=== PATIENT | female | born 1935 | race Caucasian/White ===

== ENCOUNTER 2017-04-11 20:56 | Emergency (ER) | payer MEDICARE, BC ==
[2017-04-11 21:09] VITALS: BP 140/109
--- NOTE | 2017-04-11 22:03 | EDM.PDOC ---
ED HPI GENERAL MEDICAL PROBLEM - General Chief Complaint: Lower Extremity Injury/Pain Stated Complaint: FELL DOWN STEPS INJURING LEFT ANKLE Time Seen by Provider: 04/11/17 21:10 Source of Information: Reports: Patient History Limitations: Reports: No Limitations - History of Present Illness INITIAL COMMENTS - FREE TEXT/NARRATIVE: The patient said she had a light bulb out down her stairs and she was going down stairs to take care of it and she slipped on the bottom step and hurt her right ankle. She did not hit her head or hurt her neck. She could not get up the stairs because of the pain. Her neighbor came to check on her and she brought her in. She has no other complaint just left ankle pain. Onset: Sudden Duration: Hour(s): (This morning) Location: Reports: Lower Extremity, Left (ankle) Quality: Reports: Sharp Severity: Moderate Improves with: Reports: None Worsens with: Reports: Movement (and walking on it) Associated Symptoms: Reports: No Other Symptoms Left Ankle Pain Score (Numeric/FACES): 6 - Related Data Allergies Allergy/AdvReac Type Severity Reaction Status Date / Time Penicillins Allergy Redness Verified 04/11/17 21:09 streptomycin Allergy Redness Verified 04/11/17 21:09 Home Meds: Home Meds Hydrochlorothiazide 25 mg PO DAILY 04/11/17 [History] Lisinopril 10 mg PO DAILY 04/11/17 [History] Metoprolol Tartrate 25 mg PO BID 04/11/17 [History] amLODIPine [Norvasc] 5 mg PO DAILY 04/11/17 [History] atorvaSTATin [Lipitor] 40 mg PO DAILY 04/11/17 [History] Past Medical History HEENT History: Reports: Cataract Cardiovascular History: Reports: Aneurysm, High Cholesterol, Hypertension Respiratory History: Reports: SOB Gastrointestinal History: Reports: Chronic Diarrhea Genitourinary History: Reports: Other (See Below) 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: - Past Surgical History HEENT Surgical History: Reports: Cataract Surgery Cardiovascular Surgical History: Reports: AAA repair, Valve Replacement GI Surgical History: Reports: Colonoscopy, Other (See Below) Other GI Surgeries/Procedures: COLON RESECTION Social & Family History - Family History Family Medical History: Noncontributory - Tobacco Use Smoking Status *Q: Current Every Day Smoker Years of Tobacco use: 65 Packs/Tins Daily: 1 - Recreational Drug Use Recreational Drug Use: No Review of Systems - Review of Systems Review Of Systems: See Below Constitutional: Reports: No Symptoms Eyes: Reports: No Symptoms Ears: Reports: No Symptoms Nose: Reports: No Symptoms Mouth/Throat: Reports: No Symptoms Respiratory: Reports: No Symptoms Cardiovascular: Reports: No Symptoms GI/Abdominal: Reports: No Symptoms Genitourinary: Reports: No Symptoms Musculoskeletal: Reports: Other (Left ankle pain) ED EXAM, GENERAL - Physical Exam Exam: See Below Exam Limited By: No Limitations General Appearance: Alert, No Apparent Distress Ears: Normal External Exam Nose: Normal Inspection Head: Atraumatic, Normocephalic Neck: Normal Inspection Respiratory/Chest: No Respiratory Distress, Lungs Clear, Normal Breath Sounds Cardiovascular: Regular Rate, Rhythm, No Edema, No Murmur GI/Abdominal: Soft, Non-Tender, No Organomegaly, No Mass Extremities: Other (Left medial ankle tenderness. Good sensation and pulses distally.) Course - Vital Signs Last Recorded V/S: Last Vital Signs Temp 96.9 F 04/11/17 21:04 Pulse 76 04/11/17 21:04 Resp 16 04/11/17 21:04 BP 140/109 H 04/11/17 21:04 Pulse Ox 93 L 04/11/17 21:04 - Orders/Labs/Meds Orders: Active Orders 24 hr Category Date Time Status Ankle Min 3V Lt [CR] Stat Exams 04/11/17 21:31 Taken Durable Medical Equipment for Discharge [DME for Oth 04/11/17 22:07 Ordered Discharge] [COMM] Stat - Re-Assessments/Exams Free Text/Narrative Re-Assessment/Exam: 04/11/17 22:09 The x-ray of her ankle shows a distal tibia fracture. Her neighbor was asking if she could be admitted. I told her I was not sure she would meet criteria. The patient did not want to be admitted. I will put a walking boot on her and she has crutches and a walker at home that she bought recently. 04/11/17 22:40 I talked top her again and she did not want to stay. Departure - Departure Time of Disposition: 22:10 Disposition: Home, Self-Care 01 Condition: Good Clinical Impression: Fall Qualifiers: Encounter type: initial encounter Qualified Code(s): W19.XXXA - Unspecified fall, initial encounter Fracture of distal end of tibia Qualifiers: Encounter type: initial encounter Fracture type: closed Fracture morphology: other fracture Laterality: left Qualified Code(s): S82.392A - Other fracture of lower end of left tibia, initial encounter for closed fracture - Discharge Information Referrals: Conner Park MD [Physician] - 1 Week Forms: ED Department Discharge Additional Instructions: Ice your ankle for 15 minutes every other hour while awake for 2 days. Elevate your ankle above your heart as much as you can for 2 days. Take tylenol or motrin for pain. Follow up with Dr Park in 1 week. - My Orders Last 24 Hours: My Active Orders 04/11/17 21:31 Ankle Min 3V Lt [CR] Stat 04/11/17 22:07 Durable Medical Equipment for Discharge [DME for Discharge] [COMM] Stat - Assessment/Plan Last 24 Hours: My Active Orders 04/11/17 21:31 Ankle Min 3V Lt [CR] Stat 04/11/17 22:07 Durable Medical Equipment for Discharge [DME for Discharge] [COMM] Stat
--- NOTE | 2017-04-12 09:50 | CR ---
Left ankle: Four portable views of the left ankle were obtained. Comparison: No previous study. Soft tissue swelling is identified. Minimally displaced fracture seen within the medial malleolus. Mild deformity of the posterior malleolus is seen likely representing old injury. Bony structures are osteoporotic. No additional fracture is appreciated. Impression: 1. Slightly displaced medial malleolus fracture. 2. Soft tissue swelling and other incidental findings. Diagnostic code #3
== END 2017-04-11 23:16 | disposition home or self-care (01) ==
LOC: JD.ED 20:56
DX: S82.392A Other fracture of lower end of left tibia, initial encounter for closed fracture (principal); E78.00 Pure hypercholesterolemia, unspecified; I10 Essential (primary) hypertension; F17.210 Nicotine dependence, cigarettes, uncomplicated; Z88.0 Allergy status to penicillin; Z88.1 Allergy status to other antibiotic agents; Z79.899 Other long term (current) drug therapy; Z98.49 Cataract extraction status, unspecified eye; W10.9XXA Fall (on) (from) unspecified stairs and steps, initial encounter
CPT/HCPCS: 73610-26-LT; 73610-LT; 99283

== ENCOUNTER 2019-02-09 10:06 | Emergency (ER) | payer BC, MEDICARE ==
[2019-02-09] MEDS ORDERED: Sodium Chloride 0.9% 10 ML Syringe FLUSH PRN (10:13)
[2019-02-09 10:20] VITALS: BP 142/97
--- NOTE | 2019-02-09 10:49 | CT ---
Head CT Technique: Multiple axial sections through the brain were obtained. Intravenous contrast was not utilized. Comparison: No prior intracranial imaging is available. Findings: Ventricles along with basal cisterns and sulci over the convexities are moderately prominent. Diminished density is noted within the periventricular and subcortical white matter compatible with fairly prominent small vessel ischemic demyelination change. No other abnormal parenchymal densities are seen. No evidence of intracranial hemorrhage. No midline shift or mass effect is seen. Bone window settings were reviewed which show mucosal thickening within the right mastoid sinus. Other visualized sinuses are clear. Incidental atherosclerotic calcification is seen within the carotid siphon. No acute calvarial abnormality is seen. Impression: 1. Mucosal thickening within the right mastoid sinus. This is likely chronic if patient has no acute signs of mastoiditis. 2. Senescent change as described above. 3. No acute intracranial abnormality is identified. Diagnostic code #3
--- NOTE | 2019-02-09 11:39 | EDM.PDOC ---
ED HPI GENERAL MEDICAL PROBLEM - General Chief Complaint: Neuro Symptoms/Deficits Stated Complaint: STROKE SYMPTOMS Time Seen by Provider: 02/09/19 10:13 Source of Information: Reports: Patient, Family History Limitations: Reports: No Limitations - History of Present Illness INITIAL COMMENTS - FREE TEXT/NARRATIVE: The patient presents with left sided facial weakness. She woke up with this. She went to bed around 9pm last night and she was feeling fine. She has no headache, fever, chills, cough, chest pain or shortness of breath. She has no abdominal pain, nausea or vomiting. She has no numbness or weakness in her arms or legs. She has never had a stroke before. Onset: Gradual Duration: Hour(s): Location: Reports: Head Severity: Moderate Improves with: Reports: None Worsens with: Reports: None Associated Symptoms: Reports: No Other Symptoms - Related Data Allergies Allergy/AdvReac Type Severity Reaction Status Date / Time Penicillins Allergy Redness Verified 02/09/19 10:20 streptomycin Allergy Redness Verified 02/09/19 10:20 Home Meds: Home Meds Hydrochlorothiazide 25 mg PO DAILY 04/11/17 [History] Lisinopril 10 mg PO DAILY 04/11/17 [History] amLODIPine [Norvasc] 5 mg PO DAILY 04/11/17 [History] Dextran 70/Hypromellose [Artificial Tears] 1 ml OP QID #1 bottle 02/09/19 [Rx] predniSONE [Prednisone] 60 mg PO DAILY #18 tablet 02/09/19 [Rx] valACYclovir [Valtrex] 1,000 mg PO TID #21 tab 02/09/19 [Rx] Past Medical History HEENT History: Reports: Cataract Cardiovascular History: Reports: Aneurysm, High Cholesterol, Hypertension Respiratory History: Reports: SOB Gastrointestinal History: Reports: Chronic Diarrhea Genitourinary History: Reports: Other (See Below) 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: - Past Surgical History HEENT Surgical History: Reports: Cataract Surgery Cardiovascular Surgical History: Reports: AAA Repair, Valve Replacement GI Surgical History: Reports: Colonoscopy Female Surgical History: Reports: None Social & Family History - Family History Family Medical History: Noncontributory - Tobacco Use Smoking Status *Q: Current Status Unknown - Caffeine Use Caffeine Use: Reports: Coffee ED ROS GENERAL - Review of Systems Review Of Systems: See Below Constitutional: Reports: No Symptoms HEENT: Reports: No Symptoms Respiratory: Reports: No Symptoms Cardiovascular: Reports: No Symptoms Endocrine: Reports: No Symptoms GI/Abdominal: Reports: No Symptoms : Reports: No Symptoms Musculoskeletal: Reports: No Symptoms Neurological: Reports: Other (Left sided facial droop) ED EXAM, NEURO - Physical Exam Exam: See Below Exam Limited By: No Limitations General Appearance: Alert, No Apparent Distress Eye Exam: Bilateral Eye: EOMI Ears: Normal External Exam Nose: Normal Inspection Head Exam: Atraumatic, Normocephalic Neck: Normal Inspection, Supple, Non-Tender Respiratory/Chest: No Respiratory Distress, Lungs Clear, Normal Breath Sounds Cardiovascular: Regular Rate, Rhythm, No Edema, No Murmur GI/Abdominal: Soft, Non-Tender, No Organomegaly, No Mass Neurological: Other (Left sided facial droop. Equal arm and leg strength.) EKG INTERPRETATION EKG Date: 02/09/19 Time: 10:31 Rhythm: NSR Rate (Beats/Min): 65 [employer]: Normal P-Wave: Present QRS: Normal ST-T: Normal QT: Normal Course - Vital Signs Last Recorded V/S: Last Vital Signs Temp 97.7 F 02/09/19 10:16 Pulse 79 02/09/19 10:16 Resp 18 02/09/19 10:16 BP 142/97 H 02/09/19 10:16 Pulse Ox 96 02/09/19 10:16 - Orders/Labs/Meds Orders: Active Orders 24 hr Category Date Time Status Cardiac Monitoring [RC] . DIRECTED Care 02/09/19 10:13 Active EKG Documentation Completion [RC] STAT Care 02/09/19 10:15 Active Peripheral IV Care [RC] . DIRECTED Care 02/09/19 10:15 Active Sodium Chloride 0.9% [Saline Flush] Med 02/09/19 10:13 Active 10 ml FLUSH ASDIRECTED PRN Peripheral IV Insertion Adult [OM.PC] Stat Oth 02/09/19 10:13 Ordered Medication Orders Sodium Chloride (Saline Flush) 10 ml FLUSH ASDIRECTED PRN PRN Reason: Keep Vein Open Last Admin: 02/09/19 10:43 Dose: 10 ml Labs: Laboratory Tests 02/09/19 02/09/19 02/09/19 Range/Units 10:13 10:20 10:20 WBC 5.34 (3.98-10.04) K/mm3 RBC 4.87 (3.98-5.22) M/mm3 Hgb 11.6 (11.2-15.7) gm/L Hct 38.1 (34.1-44.9) % MCV 78.2 L (79.4-94.8) fl MCH 23.8 L (25.6-32.2) pg MCHC 30.4 L (32.2-35.5) g/dl RDW Std Deviation 48.8 H (36.4-46.3) fL Plt Count 158 L (182-369) K/mm3 MPV 9.7 (9.4-12.3) fl Neut % (Auto) 61.9 (34.0-71.1) % Lymph % (Auto) 21.7 (19.3-51.7) % [place] % (Auto) 9.9 (4.7-12.5) % Eos % (Auto) 5.2 (0.7-5.8) Baso % (Auto) 1.1 (0.1-1.2) % Neut # (Auto) 3.30 (1.56-6.13) K/mm3 Lymph # (Auto) 1.16 L (1.18-3.74) K/mm3 [place] # (Auto) 0.53 H (0.24-0.36) K/mm3 Eos # (Auto) 0.28 (0.04-0.36) K/mm3 Baso # (Auto) 0.06 (0.01-0.08) K/mm3 Sodium 137 (136-145) mEq/L Potassium 4.2 (3.5-5.1) mEq/L Chloride 103 (98-107) mEq/L Carbon Dioxide 27 (21-32) mEq/L Anion Gap 11.2 (5-15) BUN 22 H (7-18) mg/dL Creatinine 1.3 H (0.55-1.02) mg/dL Est Cr Clr Drug Dosing 25.93 mL/min Estimated GFR (MDRD) 39 (>60) mL/min BUN/Creatinine Ratio 16.9 (14-18) Glucose 94 (83-115) mg/dL POC Glucose 98 (83-110) mg/dL Calcium 8.9 (8.5-10.1) mg/dL Total Bilirubin 0.4 (0.2-1.0) mg/dL AST 22 (15-37) U/L ALT 15 (14-59) U/L Alkaline Phosphatase 76 (46-116) U/L Troponin I 0.166 H* (0.00-0.056) ng/mL Total Protein 7.5 (6.4-8.2) g/dl Albumin 2.9 L (3.4-5.0) g/dl Globulin 4.6 gm/dL Albumin/Globulin Ratio 0.6 L (1-2) 02/09/19 Range/Units 12:03 WBC (3.98-10.04) K/mm3 RBC (3.98-5.22) M/mm3 Hgb (11.2-15.7) gm/L Hct (34.1-44.9) % MCV (79.4-94.8) fl MCH (25.6-32.2) pg MCHC (32.2-35.5) g/dl RDW Std Deviation (36.4-46.3) fL Plt Count (182-369) K/mm3 MPV (9.4-12.3) fl Neut % (Auto) (34.0-71.1) % Lymph % (Auto) (19.3-51.7) % [place] % (Auto) (4.7-12.5) % Eos % (Auto) (0.7-5.8) Baso % (Auto) (0.1-1.2) % Neut # (Auto) (1.56-6.13) K/mm3 Lymph # (Auto) (1.18-3.74) K/mm3 [place] # (Auto) (0.24-0.36) K/mm3 Eos # (Auto) (0.04-0.36) K/mm3 Baso # (Auto) (0.01-0.08) K/mm3 Sodium (136-145) mEq/L Potassium (3.5-5.1) mEq/L Chloride (98-107) mEq/L Carbon Dioxide (21-32) mEq/L Anion Gap (5-15) BUN (7-18) mg/dL Creatinine (0.55-1.02) mg/dL Est Cr Clr Drug Dosing mL/min Estimated GFR (MDRD) (>60) mL/min BUN/Creatinine Ratio (14-18) Glucose (83-115) mg/dL POC Glucose (83-110) mg/dL Calcium (8.5-10.1) mg/dL Total Bilirubin (0.2-1.0) mg/dL AST (15-37) U/L ALT (14-59) U/L Alkaline Phosphatase (46-116) U/L Troponin I 0.155 H* (0.00-0.056) ng/mL Total Protein (6.4-8.2) g/dl Albumin (3.4-5.0) g/dl Globulin gm/dL Albumin/Globulin Ratio (1-2) Meds: Medications Generic Name Dose Route Start Last Admin Trade Name Freq PRN Reason Stop Dose Admin Sodium Chloride 10 ml 02/09/19 10:13 02/09/19 10:43 Saline Flush FLUSH 10 ml ASDIRECTED PRN Administration Keep Vein Open Discontinued Medications Generic Name Dose Route Start Last Admin Trade Name Freq PRN Reason Stop Dose Admin Prednisone 60 mg 02/09/19 11:52 02/09/19 12:03 Prednisone PO 02/09/19 11:53 60 mg ONETIME ONE Administration - Re-Assessments/Exams Free Text/Narrative Re-Assessment/Exam: 02/09/19 11:42 I ordered an IV saline lock, EKG, CT of her head and labs. Her EKG shows a NSR with no acute changes. Her CBC looks good. Her creatinine is slightly elevated at 1.3. Her troponin is elevated at 0.166. Her CT shows mucosal thickening within the right mastoid sinus. This is likely chronic if patient has no acute signs of mastoiditis. Senescent change. No acute intracranial abnormality is identified. 02/09/19 12:27 She has trouble with her forehead on the left moving. 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 I will give her some prednisone 60mg here and I am going to repeat her troponin. I feel that is normal for her. 02/09/19 12:39 Her repeat troponin is still elevated but better at 0.155. I feel she has a trop leak but no [place]. I will discharge her home on the prednisone and antiviral. Departure - Departure Time of Disposition: 12:40 Disposition: Home, Self-Care 01 Condition: Good Clinical Impression: Guy palsy - Discharge Information *PRESCRIPTION DRUG MONITORING PROGRAM REVIEWED*: Not Applicable *COPY OF PRESCRIPTION DRUG MONITORING REPORT IN PATIENT LUIS FELIPE: Not Applicable Prescriptions: predniSONE [Prednisone] 60 mg PO DAILY #18 tablet valACYclovir [Valtrex] 1,000 mg PO TID #21 tab Referrals: Camille Jones MD [Primary Care Provider] - Forms: ED Department Discharge Additional Instructions: Take the prednisone 60mg daily for 6 days starting tomorrow. Take the valacyclovir 3 times per day for 7 days. Use an eye patch to protect your eye at night. Use the artificial tears 2 drips 4 times per day as needed for dry eye. Please return if you are worse. - My Orders Last 24 Hours: My Active Orders 02/09/19 10:13 Cardiac Monitoring [RC] . DIRECTED Sodium Chloride 0.9% [Saline Flush] 10 ml FLUSH ASDIRECTED PRN Peripheral IV Insertion Adult [OM.PC] Stat 02/09/19 10:15 EKG Documentation Completion [RC] STAT Peripheral IV Care [RC] . DIRECTED - Assessment/Plan Last 24 Hours: My Active Orders 02/09/19 10:13 Cardiac Monitoring [RC] . DIRECTED Sodium Chloride 0.9% [Saline Flush] 10 ml FLUSH ASDIRECTED PRN Peripheral IV Insertion Adult [OM.PC] Stat 02/09/19 10:15 EKG Documentation Completion [RC] STAT Peripheral IV Care [RC] . DIRECTED
[2019-02-09] MEDS ORDERED: predniSONE 20 MG Tab PO ONE (11:52)
== END 2019-02-09 13:00 | disposition home or self-care (01) ==
LOC: JD.ED 10:06
DX: G51.0 Bell's palsy (principal); I10 Essential (primary) hypertension; E78.00 Pure hypercholesterolemia, unspecified; Z79.899 Other long term (current) drug therapy; Z88.0 Allergy status to penicillin; Z88.1 Allergy status to other antibiotic agents
CPT/HCPCS: 36415; 70450; 80053; 82962; 84484; 85025; 93005; 99284; A9270; 93010

== ENCOUNTER 2019-12-06 11:06 | Emergency (ER) | payer MEDICARE ==
[2019-12-06] MEDS ORDERED: Sodium Chloride 0.9% 10 ML Syringe FLUSH PRN ×2 (11:22→12:23)
[2019-12-06 11:50] VITALS: BP 105/68
[2019-12-06] MEDS ORDERED: Lactated Ringers 1,000 ML IV ONE (12:23)
--- NOTE | 2019-12-06 12:45 | EDM.PDOC ---
ED HPI GENERAL MEDICAL PROBLEM - General Source of Information: Reports: Other (Neighbor/Truck Engine Assembler that brought her in ) History Limitations: Reports: Altered Mental Status (Does not have any idea as to why she is in her) <Darius Goodrich - Last Filed: 12/06/19 12:24> <Yifan Carnes - Last Filed: 12/08/19 17:37> - General Chief Complaint: Neurological Problem Stated Complaint: CONFUSED SENT BY DR BERRY Time Seen by Provider: 12/06/19 11:15 - History of Present Illness INITIAL COMMENTS - FREE TEXT/NARRATIVE: Shahla is an 84 y/o female who was brought in today by her neighbor/blooming mill supervisor who was informed by the patient's son that Dr. Berry ([facility]) said Shahla should come into the ED for an evaluation. The neighbor/blooming mill supervisor was the historian for this visit. Her neighbor states that since around [place] time Shahla has started to mentally decline and has started to lose her appetite, weight, and has felt more and more dehydrated. This last month in particular has been worse as Shahla does not have much idea of what is exactly going on, she is nauseous and vomiting more frequently, her blood pressure has been decreasing steadily, and she does not want to eat and only wants to drink water because she is so thirsty. In addition, the blooming mill supervisor reports that (on ) she found Shahla's vomit bucket seemed to have dried red to black colored fluid in that had a coffee ground like texture when she cleaned it out. The blooming mill supervisor also reports that Shahla had a CT scan that was finalized on 2019, and that the report came back from Dr. 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 When I spoke directly to Shahla she could not tell me why she was her nor what was wrong with her, she did state she has not been hungry and she feels very dehydrated and tired. 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 CUTTER History: Reports: - Past Surgical History HEENT Surgical History: Reports: Cataract Surgery Cardiovascular Surgical History: Reports: AAA Repair, Valve Replacement GI Surgical History: Reports: Colonoscopy Female Surgical History: Reports: None <Darius Goodrich - Last Filed: 12/06/19 12:24> Social & Family History - Family History Family Medical History: Noncontributory - Tobacco Use Smoking Status *Q: Current Every Day Smoker Years of Tobacco use: 20 Packs/Tins Daily: 1 - Caffeine Use Caffeine Use: Reports: Coffee - Recreational Drug Use Recreational Drug Use: No <Darius Goodrich - Last Filed: 12/06/19 12:24> ED ROS GENERAL - Review of Systems Review Of Systems: See Below <Yifan Carnes - Last Filed: 12/08/19 17:37> - Physical Exam Exam: See Below <Yifan Carnes - Last Filed: 12/08/19 17:37> Course <Darius Goodrich - Last Filed: 12/06/19 12:24> <Yifan Carnes - Last Filed: 12/08/19 17:37> - Vital Signs Last Recorded V/S: Last Vital Signs Temp 97.3 F 12/06/19 11:36 Pulse 70 12/06/19 15:15 Resp 18 12/06/19 15:15 BP 105/68 12/06/19 11:36 Pulse Ox 95 12/06/19 15:15 - Orders/Labs/Meds Labs: Laboratory Tests 12/06/19 12/06/19 12/06/19 Range/Units 11:06 11:56 11:56 WBC 17.16 H (3.98-10.04) K/mm3 RBC 4.30 (3.98-5.22) M/mm3 Hgb 9.5 L D (11.2-15.7) gm/dl Hct 32.1 L (34.1-44.9) % MCV 74.7 L D (79.4-94.8) fl MCH 22.1 L (25.6-32.2) pg MCHC 29.6 L (32.2-35.5) g/dl RDW Std Deviation 48.4 H (36.4-46.3) fL Plt Count 207 (182-369) K/mm3 MPV 10.1 (9.4-12.3) fl Neut % (Auto) 92.6 H (34.0-71.1) % Lymph % (Auto) 2.2 L (19.3-51.7) % [place] % (Auto) 4.7 (4.7-12.5) % Eos % (Auto) 0.1 L (0.7-5.8) Baso % (Auto) 0.1 (0.1-1.2) % Neut # (Auto) 15.92 H (1.56-6.13) K/mm3 Lymph # (Auto) 0.37 L (1.18-3.74) K/mm3 [place] # (Auto) 0.80 H (0.24-0.36) K/mm3 Eos # (Auto) 0.01 L (0.04-0.36) K/mm3 Baso # (Auto) 0.01 (0.01-0.08) K/mm3 Manual Slide Review Abnormal smear PT 11.7 (9.7-12.0) SECONDS INR 1.08 Sodium 136 (136-145) mEq/L Potassium 4.5 (3.5-5.1) mEq/L Chloride 99 (98-107) mEq/L Carbon Dioxide 24 (21-32) mEq/L Anion Gap 17.5 H (5-15) BUN 35 H (7-18) mg/dL Creatinine 1.4 H (0.55-1.02) mg/dL Est Cr Clr Drug Dosing 24.74 mL/min Estimated GFR (MDRD) 36 (>60) mL/min BUN/Creatinine Ratio 25.0 H (14-18) Glucose 148 H (83-115) mg/dL Calcium 8.3 L (8.5-10.1) mg/dL Total Bilirubin 0.6 (0.2-1.0) mg/dL AST 38 H (15-37) U/L ALT 33 (14-59) U/L Alkaline Phosphatase 123 H (46-116) U/L Total Protein 6.7 (6.4-8.2) g/dl Albumin 1.7 L (3.4-5.0) g/dl Globulin 5.0 gm/dL Albumin/Globulin Ratio 0.3 L (1-2) Meds: Medications Discontinued Medications Generic Name Dose Route Start Last Admin Trade Name Joselin PRN Reason Stop Dose Admin Lactated Ringer's 1,000 mls @ 999 mls/hr 12/06/19 12:23 12/06/19 12:53 Ringers, Lactated IV 12/06/19 13:23 999 mls/hr .BOLUS ONE Administration Sodium Chloride 10 ml 12/06/19 11:22 12/06/19 13:41 Saline Flush FLUSH 10 ml ASDIRECTED PRN Administration Keep Vein Open Sodium Chloride 10 ml 12/06/19 12:23 12/06/19 13:41 Saline Flush FLUSH 10 ml ASDIRECTED PRN Administration Keep Vein Open - Re-Assessments/Exams Free Text/Narrative Re-Assessment/Exam: 12/08/19 17:31 Initial hx and exam has been done by EYAL Grayson student. I agree with his hx and exam as documented. I have also interviewed and examined patient. She does have a palpable mass L upper abd. She has been losing wt. CT does show a mass lesion highly sugestive for colon cancer. I did do a rectal exam that showed brown stool, trace heme pos., no mass palpable. Patient does not know this yet but her neighbor who is functioning as a blooming mill supervisor does. There is a daughter coming home this weekend in a few days, the son who has power of attorny will be here next week. She is going to need NH placement. Family is reported to already have been made aware of this and has been given contact information. Pt does have an appt. Wednesday, 2 day from time of visit with Dr Berry. I have discussed current findings with Dr Berry. We are on full diversion for admissions so that is not an option at this time. Discharge instr. as documented. 12/08/19 17:35 (Yifan Carnes) Departure <Darius Goodrich - Last Filed: 12/06/19 12:24> - Departure Time of Disposition: 15:09 Condition: Fair <Yifan Carnes L - Last Filed: 12/08/19 17:37> - Departure Disposition: Home, Self-Care 01 Clinical Impression: Dizziness, Weight loss Vomiting Qualifiers: Vomiting type: unspecified Vomiting Intractability: non-intractable Nausea presence: unspecified Qualified Code(s): R11.10 - Vomiting, unspecified Abdominal mass Qualifiers: Abdominal location: left upper quadrant Qualified Code(s): R19.02 - Left upper quadrant abdominal swelling, mass and lump - Discharge Information Instructions: Nausea and Vomiting, Adult, Dizziness, [id number] Referrals: Jerel Berry MD [Primary Care Provider] - Forms: ED Department Discharge Additional Instructions: Try to drink plenty of water to maintain hydration, continue drinking and sugar as best you can. See Dr. Berry Wednesday as planned. Return to ED as needed Sepsis Event Note - Evaluation Sepsis Screening Result: No Definite Risk - Focused Exam Date Exam was Performed: 12/06/19 Time Exam was Performed: 12:24 <Darius Goodrich L - Last Filed: 12/06/19 12:24> - Focused Exam Date Exam was Performed: 12/08/19 Time Exam was Performed: 17:30 <Yifan Carnes L - Last Filed: 12/08/19 17:37>
--- NOTE | 2019-12-06 13:13 | CR ---
Chest: Portable view of the chest was obtained. Comparison: No prior chest x-ray. Heart size appears at the upper limits of normal. Tortuous thoracic aorta is seen. Small hiatal hernia is noted. 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 Nodule is noted within the right lung base most likely due to nipple density. Lungs are clear but hyperinflated. Bony structures are grossly intact. Impression: 1. Probable emphysematous change. 2. Other findings as noted above. 3. Nothing acute is suspected. Diagnostic code #2 This report was dictated in MDT
[2019-12-06 15:55] VITALS: PULSE 70
== END 2019-12-06 15:25 | disposition home or self-care (01) ==
LOC: JD.ED 11:06
DX: R19.02 Left upper quadrant abdominal swelling, mass and lump (principal); R11.10 Vomiting, unspecified; R42 Dizziness and giddiness; R63.4 Abnormal weight loss; I10 Essential (primary) hypertension; F17.210 Nicotine dependence, cigarettes, uncomplicated; Z88.0 Allergy status to penicillin; Z88.1 Allergy status to other antibiotic agents
CPT/HCPCS: 36415; 71045; 80053; 85025; 85610; 93005; 96360; 96361; 99284; J7120